=== PATIENT | female | born 1960 | race Caucasian/White ===

== ENCOUNTER 2021-10-31 13:04 | Emergency (ER) | payer OTHER, SELFPAY ==
[2021-10-31 13:08] VITALS: BP 170/67; PULSE 90; RESP 18; TEMP 36.6; O2SAT 99; BMI 26.6
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
--- NOTE | 2021-10-31 14:04 | PC.NURSE ---
report called to [facility] to ENMA Luna
== END 2021-10-31 13:53 | disposition short-term general hospital (02) ==
PROVIDERS: Emergency Provider Emergency Medicine Emergency Medical Services; PCP Internal Medicine
DX: S01.412A Laceration without foreign body of left cheek and temporomandibular area, initial encounter (principal); S01.511A Laceration without foreign body of lip, initial encounter; S01.81XA Laceration without foreign body of other part of head, initial encounter; V17.0XXA Pedal cycle driver injured in collision with fixed or stationary object in nontraffic accident, initial encounter; Y93.55 Activity, bike riding; Y92.414 Local residential or business street as the place of occurrence of the external cause; Y99.9 Unspecified external cause status
CPT/HCPCS: 99285

== ENCOUNTER 2023-04-12 08:58 | Day surgery (SDC) | payer BC, SELFPAY ==
[2023-04-08 15:07] VITALS: BMI 27.4
--- NOTE | 2023-04-11 09:19 | HO.ANESPROP2 ---
Documented by User: Dayanara Guerrier NP 04/11/23 09:20 HPI - Anesthesia Eval Consult details Narrative: 62yo F for Colonoscopy [facility] Past Medical History Medical History Osteoarthritis Elevated cholesterol Renal calculi Migraine Anxiety HTN (hypertension) Surgical History Surgical History History of endometrial ablation History of back surgery H/O colonoscopy Social History Social History Patient Tobacco Use Status: Former Tobacco user Quit Date: >10 years ago Tobacco use type: Cigarette Use of substances other than those prescribed or required for medical reasons: Yes Substance Use Type Other:: Edible with dinner Are you DNR?: No Advance Directives: No Advance Directives Information Provided: Yes Meds Allergies Allergy/AdvReac Type Severity Reaction Status Date / Time codeine [CODEINE] Allergy Unknown UNKNOWN Verified 04/12/23 09:09 Home Medications Medication Instructions Recorded Confirmed Last Taken Type [id number]-[id number]-[id number] 1 cap PO TID PRN Migraine Headache 04/08/23 04/08/23 Unknown History 50 mg-325 mg-40 mg capsule hydrochlorothiazide 12.5 mg capsule 12.5 mg PO DAILY 04/08/23 04/08/23 Unknown History lisinopril 20 mg tablet 20 mg PO DAILY 04/08/23 04/08/23 Unknown History lorazepam 0.5 mg tablet 0.5 mg PO DAILY PRN anxiety 04/08/23 04/08/23 Unknown History paroxetine HCl 10 mg tablet 10 mg PO QAM 04/08/23 04/12/23 04/12/23 History rosuvastatin 10 mg tablet 10 mg PO DAILY 04/08/23 04/08/23 Unknown History Exam Height,Weight and Vital Signs: Height 5 ft 6 in Weight 77.111 kg Assessment and Plan Assessment Anesthesia Assessment: Chart Reviewed Documented by User: Vicky Holly MD 04/12/23 09:33 [facility] Past Medical History Medical History Osteoarthritis Elevated cholesterol Renal calculi Migraine Anxiety HTN (hypertension) Family History Family history of problems with anesthesia: No Surgical History Surgical History History of endometrial ablation History of back surgery H/O colonoscopy History of Problems with Anesthesia: No Social History Social History Patient Tobacco Use Status: Former Tobacco user Quit Date: >10 years ago Tobacco use type: Cigarette Use of substances other than those prescribed or required for medical reasons: Yes Substance Use Type Other:: Edible with dinner Are you DNR?: No Advance Directives: No Advance Directives Information Provided: Yes Meds Allergies Allergy/AdvReac Type Severity Reaction Status Date / Time codeine [CODEINE] Allergy Unknown UNKNOWN Verified 04/12/23 09:09 Home Medications Medication Instructions Recorded Confirmed Last Taken Type zlgjedpwxg-dmzszcckkbgua-fugaiwku 1 cap PO TID PRN Migraine Headache 04/08/23 04/08/23 Unknown History 50 mg-325 mg-40 mg capsule hydrochlorothiazide 12.5 mg capsule 12.5 mg PO DAILY 04/08/23 04/08/23 Unknown History lisinopril 20 mg tablet 20 mg PO DAILY 04/08/23 04/08/23 Unknown History lorazepam 0.5 mg tablet 0.5 mg PO DAILY PRN anxiety 04/08/23 04/08/23 Unknown History paroxetine HCl 10 mg tablet 10 mg PO QAM 04/08/23 04/12/23 04/12/23 History rosuvastatin 10 mg tablet 10 mg PO DAILY 04/08/23 04/08/23 Unknown History Exam Airway Mallampati Class: II TM Dist: >3cm Neck ROM: Full Heart: rrr Lungs: cta Assessment and Plan Assessment Anesthesia Assessment: Anesthesia Plan Discussed Final Anesthetic Review Family History of Problems with Anesthesia: No History of Problems with Anesthesia: No NPO: Yes ASA Class: II Final Preanesthetic Review: No Changes in Pt Med Stat, Meds/Allgs Chart Reviewed, Consent Obtained/Reviewed and Anes Risks/Benef Reviewed Patient Risk: Low Procedure Risk: Low Anesthetic Plan Anesthetic Plan: MAC: Disposition: Standard PACU
[2023-04-12 09:03] VITALS: BMI 28.2
[2023-04-12 09:17] VITALS: BP 155/80; PULSE 61; RESP 16; TEMP 35.6; O2SAT 99
[2023-04-12] MEDS: Lactated Ringers 1,000 ML 100 ML IVCONT (09:27)
--- NOTE | 2023-04-12 09:57 | MHC.SHP ---
Pre-Procedural Eval Section A Date of Service: 04/12/23 Section B Chief Complaint: screening Details of Present Illness: see H*P no changes Relevant Family History (Specify if Yes): No Relevant Social History: None Present Medications: see Short Stay Collaborative assessment Medical History: No relevant PMH History of Previous Operations: No relevant previous surgery Allergies: Allergies Allergy/AdvReac Type Severity Reaction Status Date / Time codeine [CODEINE] Allergy Unknown UNKNOWN Verified 04/12/23 09:09 Review of Systems Sugical H&P ROS: Negative: Constitution, Cardiovascular, Respiratory, Neurological, Psychiatric, Hem-Onc, Allergic/Immunologic, Gastrointestinal, Genitourinary, Musculoskeletal, Integumentary, Endocrine and Eyes/Ears/Nose/Throat Exam Surgical H&P Exam: Normal: HEENT, Normal: Heart, Normal: Lungs, Normal: Extremities, Normal: Abdomen, Normal: Skin and Normal: Neurological Plan Diagnosis/Plan: Unchanged I have reviewed the history and physical and performed a pertinent physical examination on my patient. No changes have occurred unless specified. Time Spent With Patient Time: Total time managing care of this patient today ____ minutes.
[2023-04-12 10:37] VITALS: BP 106/51; PULSE 73; RESP 16; TEMP 36.9; O2SAT 97
[2023-04-12 10:52] VITALS: BP 109/60; PULSE 62; RESP 16; TEMP 36.3; O2SAT 100
--- NOTE | 2023-04-12 11:24 | OP_ITS ---
DATE OF SERVICE: 04/12/2023 SURGEON: Monty Shahid MD INDICATIONS: Colon cancer screening and prior history of adenomatous colon polyps. PREOPERATIVE DIAGNOSIS: POSTOPERATIVE DIAGNOSIS: PROCEDURE PERFORMED: Colonoscopy to the terminal ileum with biopsy. ESTIMATED BLOOD LOSS: COMPLICATIONS: ANESTHESIA: Monitored anesthesia care. ASSISTANTS: SPECIMENS: DESCRIPTION OF PROCEDURE: A history and physical was performed. The risks and benefits of the procedure were explained to the patient. Informed consent was obtained. The patient was placed in the left lateral decubitus position. A digital rectal exam was performed and was found to be normal. The Olympus pediatric video colonoscope was introduced into the rectum and advanced to the cecum without difficulty. The cecum was identified by transillumination, palpation, and identification of ileocecal valve. Examination was performed. The scope was removed. She tolerated the procedure well, and was returned to the recovery area in stable condition. FINDINGS: The terminal ileum was examined and appeared normal. The visualized colonic mucosa was within normal limits without evidence of masses or ulcers. There was a single polyp measuring less than 5 mm, which was identified at 70 cm. The polyp was removed with biopsy forceps. There was moderate sigmoid diverticulosis with scattered diverticula throughout the remainder of the colon. Retroflexed examination showed some internal hemorrhoids. The quality of the prep was good. IMPRESSION: Colon polyp. RECOMMENDATION: Follow up the biopsy results. MD YOBANI Landaverde/FEROZ / [id number]
== END 2023-04-12 11:08 | disposition home or self-care (01) ==
PROVIDERS: PCP Internal Medicine; Visit Provider Internal Medicine Gastroenterology
PROC: 0DJD8ZZ Inspection of Lower Intestinal Tract, Via Natural or Artificial Opening Endoscopic (ICD-10-PCS; CPT 45378; principal; 2023-04-12 10:30)
DX: Z12.11 Encounter for screening for malignant neoplasm of colon (principal); D12.4 Benign neoplasm of descending colon; K57.30 Diverticulosis of large intestine without perforation or abscess without bleeding; K64.8 Other hemorrhoids; Z86.010 Personal history of colon polyps; I10 Essential (primary) hypertension; E78.00 Pure hypercholesterolemia, unspecified; Z87.442 Personal history of urinary calculi; Z87.891 Personal history of nicotine dependence; Z79.02 Long term (current) use of antithrombotics/antiplatelets; Z79.899 Other long term (current) drug therapy
CPT/HCPCS: 45380; 88305; J2704

== ENCOUNTER 2025-01-11 08:58 | Emergency (ER) | payer BC, SELFPAY ==
--- NOTE | ~2025-01-11 | CT_ITS ---
EXAMINATION: CT ABDOMEN AND PELVIS WITH CONTRAST CLINICAL INFORMATION: Periumbilical pain COMPARISON: None available. TECHNIQUE: Multidetector volumetric images were obtained from the superior aspect of the liver through the pubic symphysis following administration 85 mL of Omnipaque 350 intravenous contrast. Sagittal and coronal reformatted images were obtained on the technologist's workstation. Oral contrast: No This CT examination was performed using dose optimization techniques as appropriate, variously including the following: *Automated exposure control *Adjustment of mA and/or kV according to patient size (this includes techniques or standardized protocols for targeted exams where dose is matched to indication/reason for exam; i.e. extremities or head) *Use of iterative reconstruction technique DLP: 722 mGy*cm FINDINGS: LUNG BASES: The visualized lung bases are unremarkable. LIVER, GALLBLADDER, AND BILIARY TREE: The liver is normal in size, shape, and attenuation. No focal hepatic lesion or biliary ductal dilatation is present. The gallbladder is unremarkable with no evidence of radiopaque gallstones, gallbladder wall thickening, or obvious pericholecystic inflammatory changes. PANCREAS: Unremarkable. SPLEEN: Unremarkable. ADRENAL GLANDS: Unremarkable. KIDNEYS AND URETERS: The kidneys are normal in size, shape, and attenuation. No hydronephrosis, hydroureter, or calculi seen. No perinephric stranding. BLADDER: Unremarkable. GASTROINTESTINAL TRACT: Diverticulosis present throughout the colon, and most pronounced in the descending and sigmoid colon. There is a mesenteric fat stranding in the sigmoid colon near junction with rectum. There is no loculated fluid collection or localized or generalized free air. ABDOMINAL WALL: No significant hernia is appreciated. LYMPH NODES: Normal. VASCULAR: Moderate vascular calcifications are present PELVIC VISCERA: Unremarkable. OSSEOUS STRUCTURES: Moderate multilevel degenerative disc disease is present in the lumbar spine. Mild degenerative changes are present in the hips. CT/CT abdomen pelvis w IV con IMPRESSION: Acute uncomplicated diverticulitis involving the sigmoid colon. Fleischner guidelines were followed. Electronically signed by: Dave Lopez MD 01/11/2025 12:53 PM EDT
[2025-01-11 09:25] VITALS: BP 109/62; PULSE 81; RESP 16; TEMP 36.8; O2SAT 96; BMI 27.5
[2025-01-11 09:45] LABS: MANUAL DIFF FLAG NO
[2025-01-11 09:47] LABS: Hematocrit 37.9 % (37.0-47.0); Hemoglobin 13.3 g/dl (12.0-16.0); Imm Gran Abs Auto 0.02 X10*3/uL (0.00-0.03); Imm Gran Pct Auto 0.2 % (0.0-0.4); Lymphocytes Absolute Auto 1.1 X10*3/uL (1.2-4.9); Mean Corpuscular HGB Conc 35.1 g/dl (31.0-35.0); Mean Corpuscular Hemoglobin 30.2 pg (27.0-33.0); Mean Corpuscular Volume 86.1 fL (80.0-98.0); NRBC Abs Auto 0.000 X10*3/uL (0.0-0.012); NRBC Pct Auto 0.0 /100WBC (0.0-0.2); Platelet Count 275 X10*3/uL (160-400); Red Blood Count 4.40 X10*6/uL (4.20-5.50); White Blood Count 9.9 X10*3/uL (4.8-10.8)
[2025-01-11 09:49] LABS: Appearance Urine Clear; Glucose Urine UA Negative (Negative); PH 7.5 (5.0-9.0); Specific Gravity - Urine 1.010 (1.005-1.025)
[2025-01-11 10:06] LABS: Alanine Aminotransferase 21 U/L (0-31); Albumin Level 4.6 g/dL (3.5-5.0); Alkaline Phosphatase 60 U/L (39-117); Anion Gap 13 (12-20); Aspartate Amino Transferase 19 U/L (5-31); Blood Urea Nitrogen 15 mg/dL (9-16); Calcium 9.2 mg/dL (8.4-10.2); Carbon Dioxide 25 mmol/L (22-29); Chloride 105 mmol/L (96-108); Creatinine Clr Calc Pharmacy 90.8; Estimated Glomerular Filt Rate > 60; Potassium 4.2 mmol/L (3.3-5.1); Sodium 139 mmol/L (135-145); Total Protein 7.1 g/dL (6.5-8.0)
[2025-01-11 11:01] VITALS: BP 128/68; PULSE 70; RESP 20; TEMP 36.7; O2SAT 99
--- NOTE | 2025-01-11 11:13 | ED_ITS ---
HPI - General Adult General Chief complaint: Abdominal Pain Stated complaint: pain in belly button, kidney stone? Time Seen by Provider: 01/11/25 10:18 Source: patient and family Mode of arrival: ambulatory Limitations: no limitations History of Present Illness ED Provider: THOMAS Walton HPI narrative: This is a 64-year-old female past medical history significant for hypertension, hyperlipidemia, hit kidney stones presenting to the emergency department with complaints of severe abdominal pain started around the umbilicus region and radiated down twoards the lower abdomen. She tells me this pain woke her in her sleep. Pain is still present and diffuse throughout her lower abdomen she tells me she is still quite uncomfortable. No associated nausea or vomiting. She still has her appendix, gallbladder. She tells me she has a history of diverticulitis however this seemed to feel slightly different. Related Data Home Medications ?Medication ?Instructions ?Recorded ?Confirmed zmpygdajwu-mqkpekymdvnmv-flhouxva 1 cap PO TID PRN Julio C aden Headache 04/08/23 04/08/23 50 mg-325 mg-40 mg capsule hydrochlorothiazide 12.5 mg capsule 12.5 mg PO DAILY 1 06/09/22 04/08/23 lisinopril 20 mg tablet 20 mg PO DAILY 04/08/2312/22 lorazepam 0.5 mg tablet 0.5 mg PO DAILY PRN anxiety 04/08/23 04/08/23 paroxetine HCl 10 mg tablet 10 mg PO QAM 04/08/2304/01 rosuvastatin 10 mg tablet 10 mg PO DAILY 04/08/2312/22 Previous Rx's ?Medication ?Instructions ?Recorded amoxicillin 875 mg-potassium 1 tab PO BID 10 days #20 tabs 01/11/25 clavulanate 125 mg tablet ketorolac 10 mg tablet 10 mg PO TID PRN pain 5 days #15 01/11/25 tabs Allergies Allergy/AdvReac Type Severity Reaction Status Date / Time codeine (CODEINE) Allergy Unknown UNKNOWN Verified 01/11/25 09:27 Review of Systems 2 Review of Systems: Yes all other systems are reviewed and are negative PMFSH Past Medical History Attestation statement: The following information was validated with the patient. Source: old records reviewed and nursing notes reviewed Medical History Osteoarthritis Elevated cholesterol Renal calculi Migraine Anxiety HTN (hypertension) Surgical History History of endometrial ablation History of back surgery H/O colonoscopy Social History Social History Patient Tobacco Use Status: Former Tobacco user Tobacco use type: Cigarette Physical Exam ED Exam Exam: Appearance: Alert.? Oriented X3.? No acute distress.? Head: Normocephalic, atraumatic, no step-offs or deformities Eyes: Pupils equal, round and reactive to light.? ENT: Pharynx normal.? Neck: Normal inspection.? Neck supple.? CVS: Normal heart rate and rhythm.? Pulses normal.? Respiratory: No respiratory distress.? Breath sounds normal.? Abdomen: Soft and nontender.? Skin: Skin warm and dry.? Normal skin color.? Normal skin turgor.? Extremities: No lower extremity edema.? No calf ttp. 5/5 strength to bilateral upper and lower extremities Neuro: Oriented X 3.? No motor deficit.? No sensory deficit. CN 2-12 intact Vital Signs: Vital Signs - 24 hr 01/11/25 09:25 01/11/25 11:01 01/11/25 11:32 Temperature 98.2 F 98.1 F 98.1 F Pulse Rate 81 70 67 Respiratory Rate 16 20 16 Blood Pressure 109/62 128/68 138/69 Pulse Oximetry 96 99 99 Oxygen Delivery Method Room Air Room Air Room Air 01/11/25 13:18 Temperature 98.1 F Pulse Rate 67 Respiratory Rate 16 Blood Pressure 138/69 Pulse Oximetry 99 Oxygen Delivery Method Room Air BMI result Body Mass Index 27.5 vss Course Reevaluation(s) Reevaluation #1: CBC with no acute findings needing intervention. Chemistry unremarkable. UA no infection. CT abdomen pelvis pending. Toradol will be given for pain. Time: 11:22 Reevaluation #2: Patient's CT of the abdomen showing acute uncomplicated diverticulitis involving the sigmoid colon. She is tolerating p.o. feeling well after Toradol. Will discharge her home with Toradol as well as Augmentin. Educated patient on diagnosis and treatment plan, answered all question, patient verbalizes understanding. At this time patient will be discharged home, advised to return with new or worsening symptoms. Educated on worrisome signs and symptoms and when to return. At this time I feel comfortable discharge home. Time: 13:41 Medications Administered Discontinued Medications Generic Name Dose Route Start Last Admin Trade Name Brigid PRN Reason Stop Dose Admin Iohexol 100 ml 01/11/25 12:38 01/11/25 12:39 Iohexol 350 Mg/Ml 100 Ml Infus..Btl IV 01/11/25 12:39 85 ml ONCE ONE Administration Ketorolac Tromethamine 30 mg 01/11/25 11:21 01/11/25 11:29 Ketorolac Tromethamine 15 Mg/Ml Vial IVPUSH 01/11/25 11:22 30 mg ONCE ONE Administration Medical Decision Making Medical Decision Making [facility] Narrative: 1120 64-year-old female presents with abdominal pain started in the umbilicus region and radiated to lower abdomen still present. Woke her from her sleep. History of kidney stones and diverticulitis. No associated nausea or vomiting. She does mention later she has some foul smelling urine. Physical exam significant for tenderness to palpation throughout entire abdomen worse to the lower quadrants there is tenderness to the right upper quadrant as well. History and physical exam concerning for diverticulitis versus kidney stones versus UTI. Low suspicion for pyelo. Will rule out appendicitis. No signs of acute abdomen. Will rule out metabolic derangements. Plan labs, urine, imaging Differential Diagnosis Differential Diagnoses: The differential diagnosis associated with the presentation includes (History and physical exam concerning for diverticulitis versus kidney stones versus UTI. Low suspicion for pyelo. Will rule out appendicitis. No signs of acute abdomen. Will rule out metabolic derangements.) Admission/Observation Consideration of admission/observation: Escalation of care including admission/observation considered Lab Data [facility] Lab Attestation statement: I reviewed the patient's lab results. 01/11/25 09:39 01/11/25 09:39 Labs: Lab Results 01/11/25 Range/Units 09:39 WBC 9.9 (4.8-10.8) X10*3/uL RBC 4.40 (4.20-5.50) X10*6/uL Hgb 13.3 (12.0-16.0) g/dl Hct 37.9 (37.0-47.0) % MCV 86.1 (80.0-98.0) fL MCH 30.2 (27.0-33.0) pg MCHC 35.1 H (31.0-35.0) g/dl RDW 12.7 (11.0-16.0) % Plt Count 275 (160-400) X10*3/uL MPV 10.0 (9.4-12.3) fL Immature Gran % (Auto) 0.2 (0.0-0.4) % Neut % (Auto) 80.3 H (45-73) % Lymph % (Auto) 10.8 L (20-40) % [place] % (Auto) 7.3 (2-11) % Eos % (Auto) 1.0 (0-4) % Baso % (Auto) 0.4 (0-2) % Lymph # (Auto) 1.1 L (1.2-4.9) X10*3/uL [place] # (Auto) 0.7 (0.1-1.2) X10*3/uL Eos # (Auto) 0.1 (0.0-0.4) X10*3/uL Baso # (Auto) 0.0 (0.0-0.2) X10*3/uL Abs Immat Gran (auto) 0.02 (0.00-0.03) X10*3/uL Absolute Neuts (auto) 8.0 (2.0-8.3) x10*3/uL Absolute Nucleated RBC 0.000 (0.0-0.012) X10*3/uL Nucleated RBC % (auto) 0.0 (0.0-0.2) /100WBC Sodium 139 (135-145) mmol/L Potassium 4.2 (3.3-5.1) mmol/L Chloride 105 (96-108) mmol/L Carbon Dioxide 25 (22-29) mmol/L Anion Gap 13 (12-20) BUN 15 (9-16) mg/dL Creatinine 0.65 (0.5-1.4) mg/dL Estim Creat Clear Calc 90.8 Estimated GFR > 60 Random Glucose 109 (60-115) mg/dL Calcium 9.2 (8.4-10.2) mg/dL Total Bilirubin 0.7 (0.0-1.0) mg/dL AST 19 (5-31) U/L ALT 21 (0-31) U/L Alkaline Phosphatase 60 (39-117) U/L Total Protein 7.1 (6.5-8.0) g/dL Albumin 4.6 (3.5-5.0) g/dL Urine Color Yellow Urine Appearance Clear Urine pH 7.5 (5.0-9.0) Ur Specific Krebs 1.010 (1.005-1.025) Urine Protein Negative (Neg-Trace) mg/dL Urine Glucose (UA) Negative (Negative) mg/dL Urine Ketones Negative (Negative) mg/dL Urine Blood Negative (Negative) Urine Nitrite Negative (Negative) Ur Leukocyte Esterase Negative (Negative) Independent Interpretation I performed an independent interpretation of an: CT Scan Radiology Impression Discussion of test interpretation with radiology: I have reviewed the radiologist's reading. Independent Historian Clinical information obtained from an independent historian. History obtained from or confirmed by: Spouse External Record Review External record reviewed: Inpatient record, Office record, Outpatient record, Prior outpatient labs, Prior outpatient radiology, Primary care record and Outside ED record Discharge Plan Discharge Clinical Impression: Diverticulitis, Abdominal pain Patient Disposition: Home, Self-Care Instructions: Diverticulitis (ED), Abdominal Pain (ED) Additional Instructions: Take your medications as prescribed. If you were prescribed antibiotics today, it is important that you take your medication to their entirety, do not skip any doses, do not finish them early. Follow-up with your primary care provider this week. Return to the emergency department with new or worsening symptoms. Such as fevers, chills, chest pain, shortness of breath, nausea, vomiting, dizziness, headache, vision changes, lethargy In case of emergency call 911 CT/CT abdomen pelvis w IV con IMPRESSION: Acute uncomplicated diverticulitis involving the sigmoid colon. Fleischner guidelines were followed. Prescriptions: New amoxicillin-pot clavulanate 875-125 mg tablet 1 tab PO BID 10 Days Qty: 20 0RF ketorolac 10 mg tablet 10 mg PO TID PRN (Reason: pain) 5 Days Qty: 15 0RF Rx Instructions: Tolerated IM or IV in department No Action ssidkpehri-clzxwwidqnhbg-ynzw 50-325-40 mg capsule 1 cap PO TID PRN (Reason: Migraine Headache) paroxetine HCl 10 mg tablet 10 mg PO QAM lisinopril 20 mg tablet 20 mg PO DAILY lorazepam 0.5 mg tablet 0.5 mg PO DAILY PRN (Reason: anxiety) hydrochlorothiazide 12.5 mg capsule 12.5 mg PO DAILY rosuvastatin 10 mg tablet 10 mg PO DAILY Referrals: Monty Shahid MD [Physician, Gastroenterology] Miguelito Lee MD [Primary Care Provider, Internal Medicine] Interventions: ED Discharge Assessment Last Done: 01/11/25 13:18 Discharge Date/Time: 01/11/25 13:19 Print Language: Wallisian
--- NOTE | 2025-01-11 11:29 | PC.NURSE ---
Pt Axo3, Pt states she's been having abdominal pain of 8 out of 10 that radiates to R flank. Pt has a hx of Kidney stones. PT lives at home and is independent per baseline, 20G IV in Right AC, PT medicated per JUN. VS updated call schmitz within reach, Pt awaiting CT scan.
[2025-01-11 11:32] VITALS: BP 138/69; PULSE 67; RESP 16; TEMP 36.7; O2SAT 99
--- OUTSIDE RECORDS SUMMARY | 2025-01-11 12:00 | XMS_ITS | Clinical Summary ---
Author Organization [facility] Address [address] [place] [address] Care Team Providers Care Organizational Research Consultant Name Role Phone Miguelito Lee MD Primary Care Provider [phone] Allergies Active Allergy Reactions Criticality Noted Date Comments Codeine 11/09/2021 Codeine-Guaifenesin Dizziness 05/31/2022 Medications PARoxetine (Paxil) 10 mg tablet Take 10 mg by mouth in the morning. 05/16/2022 Active LORazepam (Ativan) 0.5 mg tablet Take 0.5 mg by mouth in the morning. 05/05/2022 Active lisinopril 20 mg tablet Take 20 mg by mouth in the morning. 05/09/2022 Active hydroCHLOROthia zide (Microzide) 12.5 mg capsule Take 12.5 mg by mouth in the morning. 05/14/2022 Active butalbital-acet aminophen-caff (Esgic) 50-325-40 mg capsule Take 1 capsule by mouth if needed in the morning, at noon, and at bedtime. 05/18/2022 Active Active Problems No known active problems Family History Medical History Relation Name Comments Cancer Father ZACKARY SMALL Hypertension Sister ZAYNAB ROSAS ANA CRISTINA RSTUCKER Relation Name Status Comments Father ZACKARY SMALL Sister LUISITO OSBORNEZAYNAB Social History Tobacco Use Types Packs/Day Years Used Date Smoking Tobacco: Former Cigarettes 0.3 12 0 10/06/1982 - 10/06/1994 Smokeless Tobacco: Never Tobacco Cessation:Counseling Given: Not Answered Alcohol Use Standard Drinks/Week Comments Yes 4 (1 standard drink = 0.6 oz pur e alcohol) WITH DINNER Comments Unknown Sex and Gender Information Value Date Recorded Sex Assigned at Not on file Legal Sex Female 8:25 AM EDT Gender Identity Not on file Sexual Orientation Not on file Last Filed Vital Signs Vital Sign Reading Time Taken Comments Blood Pressure - - Pulse - - Temperature - - Respiratory Rate - - Oxygen Saturation - - Inhaled Oxygen Concentration - - Weight 78.6 kg (173 lb 3.2 oz) 11/09/2021 1:50 P M EDT Height 165.1 cm (5' 5 ) 11/09/2021 1:50 PM EDT Body Mass Index 28.82 11/09/2021 1:50 PM EDT Plan of Treatment Health Maintenance Due Date Last Done Comments CT Colonography 1962 Colonoscopy 1962 Colorectal Cancer Screening 1962 FIT-DNA 1962 FIT 1962 FOBT 1962 HIV Screening 1962 Lipid Panel 1962 Sigmoidoscopy 1962 MMR Vaccines (1 of 1 - Standard series) 08/06/1963 Hepatitis C Screening 1980 Pap Smear 08/06/1983 Cervical Cancer Screening 1992 HPV/Cotest 1992 Mammogram 2002 Pneumococcal Vaccine: 50+ Years (1 of 1 - PCV) 2012 Zoster Vaccines (2 of 2) 10/14/2020 08/19/2020 Depression Screening 05/02/2024 COVID-19 Vaccine ( season) 2024 01/22/2022, 03/02/2021, 01/07/2021, Additional history exists Influenza Vaccine (#1) 2024 3, 01/22/2022, 03/18/2021, Additional history exists DTaP/Tdap/Td Vaccines (3 - Td or Tdap) 11/01/2031 10/31/2021, 05/02/2009, 05/02/2005 Hepatitis A Vaccines Aged Out 01/07/2011 No long er eligible based on patient's age to complete this topic HIB Vaccines Aged Out No longer eligi ble based on patient's age to complete this topic HPV Vaccines Aged Out No longer eligi ble based on patient's age to complete this topic Hepatitis B Vaccines Aged Out No long er eligible based on patient's age to complete this topic IPV Vaccines Aged Out No longer eligi ble based on patient's age to complete this topic Meningococcal B Vaccine Aged Out No l onger eligible based on patient's age to complete this topic Meningococcal Vaccine Aged Out No antonio lonnie eligible based on patient's age to complete this topic Rotavirus Vaccines Aged Out No longer eligible based on patient's age to complete this topic [facility] Care Teams Organizational Research Consultant Relationship Specialty Start Date End Date Miguelito Lee MD [address] [place] [id number] PCP - General Stonework Supervisor 11/09/21
--- OUTSIDE RECORDS SUMMARY | 2025-01-11 12:00 | XMS_ITS | Clinical Summary ---
Author Organization [facility] Address [address] [place] [id number] Phone Care Team Providers Care Signal Engineer Name Role Phone Miguelito Lee MD Primary Care Provider + Medications diclofenac sodium (VOLTAREN) 75 MG EC tabletIndications:P rimary osteoarthritis of right knee,Pain and swelling of knee, right Take 1 tablet (75 mg total) by mouth 2 (two) times a day. 60 tablet Active Social History Tobacco Use Types Packs/Day Years Used Date Smoking Tobacco: Never Assessed Education Answer Date Recorded Are you interested in more education? Not on cara e 01/20/2024 Are you concerned about learning? Not on file 01/20/2024 No 01/20/2024 No 01/20/2024 Digital Access Answer Date Recorded No 01/20/2024 No 01/20/2024 Reliable internet access at home? Not on file 01/20/2024 Device with a working camera? Not on file Comments Unknown Sex and Gender Information Value Date Recorded Sex Assigned at Not on file Legal Sex Female 6:40 PM EST Gender Identity Not on file Sexual Orientation Not on file Plan of Treatment Health Maintenance Due Date Last Done Comments Adult Td,Tdap Booster 1962 LIPID PANEL 1962 DEPRESSION SCREENING 1974 SMOKING Hx and SMOKELESS TOB ACCO SCREENING 08/06/1975 HEPATITIS C SCREENING 1980 HIV ONE-TIME SCREENING (18-6 5 YEARS) 1980 PAP SMEAR 08/06/1983 MAMMOGRAM 2002 COLOGUARD 08/06/2007 COLONOSCOPY 08/06/2007 COLORECTAL CANCER SCREENING 08/06/2007 FIT TEST 08/06/2007 FOBT 08/06/2007 SIGMOIDOSCOPY 08/06/2007 VIRTUAL COLONOSCOPY 08/06/2007 PNEUMOCOCCAL VACCINES (50+ y ears) (1 of 1 - PCV) 2012 ZOSTER VACCINES (1 of 2) 2012 INFLUENZA VACCINE (#1) 2024 COVID-19 VACCINE (1 - 2023-2 5 season) 2024 RSV VACCINE (1 - 1-dose 75+ series) 2037 HEPATITIS A VACCINES Aged Out No long er eligible based on patient's age to complete this topic HIB VACCINES Aged Out No longer eligi ble based on patient's age to complete this topic MENINGOCOCCAL VACCINES (ACWY) Aged Out No longer eligible based on patient's age to complete this topic MENINGOCOCCAL VACCINES (B) Aged Out N o longer eligible based on patient's age to complete this topic Medical Devices Not on file [place] [address] [facility] [place] [address] [place] [address] Member Subscriber Plan / Payer (Ef fective 2022-Present) Name:Katharina Maldonado Relation to Subscriber:Self Name:Katharina Maldonado Payer ID:[id number] (NAIC) Type:HMO Address: [address] [place], [place] [address] [facility] Care Teams Signal Engineer Relationship Specialty Start Date End Date Miguelito Lee MD PCP - General 01/20/24 Additional Source Comments The information contained in this document represents components of the legal health record. It is not the complete legal health record.[facility]
--- OUTSIDE RECORDS SUMMARY | 2025-01-11 12:01 | XMS_ITS | Patient Health Record ---
Author Organization [facility] mart[facility] Address [address] [place] [address] Care Team Providers Care Software Developer Intern Name Role Phone Marcela Edwards Primary Care Provider Sascha Barrera Unavailable [phone] Allergies Allergen (clinical drug ingredient) Drug/Non Drug Allergy documented on EMR Reaction Allergy Type Onset Date Status Codeine Phosphate flu like reaction Drug Allergy Active Reason For Referral No Information Medications Medication SIG (Take, Route, Fr equency, Duration) Notes Start Date End Date Status LORazepam 1 MG 1 tablet at bedtime as needed Orally Once a day Active Physical Therapy . . . 2-3x/week; Durat ion: 3-4 weeks 05/29/2018 Active Social History Tobacco Use: Social History Observation Description Date Details (start date - stop date) Former Smoker NA - NA Tobacco Use/Smoking Question Answer Notes Are you a: former smoker Additional Findings: Tobacco User Modera te cigarette smoker (10-19 cigs/day) Additional Findings: Tobacco Non-User Current no n-smoker Alcohol Screen Question Answer Notes Did you have a drink containing alcohol in the p ast year? Yes Points 0 Interpretation Negative Tobacco use other than smoking: Question Answer Notes Are you an other tobacco user? No Plan Of Treatment Pending Test Test Name Order Date X ray : Foot, right 3V 05/29/2018 Insurance Providers Payer Name Payer Address Payer Phone Subscriber Number Group Number Insured Name Patient Relationship to Insured Coverage Start Date Coverage End Date [place] [address] KRANTHI Gomez [phone] [id number] WaldoKatean Self - patient is the insured Medical (General) History Medical History History ICD Code Arthritis Back,Hip,and Knee pain Headaches/Migraines Surgical History Surgery Date(Month/Year) back surgery 1988
--- OUTSIDE RECORDS SUMMARY | 2025-01-11 12:01 | XMS_ITS | Patient Health Record ---
Author Organization [facility] Address [address] [place] [address] Care Team Providers Care Insurance Claims Specialist Name Role Phone Miguelito Lee MD Primary Care Provider Unavailab Monty Cox Jr Unavailable Allergies Allergen (clinical drug ingredient) Drug/Non Drug Allergy documented on EMR Reaction Allergy Type Onset Date Status codeine Codeine Sulfate Unknown Drug Allergy A ctive Reason For Referral No Information Medications Medication SIG (Take, Route, Frequency, Duration) Notes Start Date End Date Status LORazepam prn Active Rosuvastatin Calcium 10 MG Oral for 90 Active PARoxetine HCl 10 MG Oral for 90 Active Lisinopril 20 MG TAKE 1 TABLET BY MOUTH EVERY DAY Oral for 90 Active hydroCHLOROthiazide 12.5 MG Oral for 90 Active MiraLax (colon prep) 17 GM/SCOOP mixed with Gatorade or Crystal Light Orally begin at 5:00 p.m. the day before the procedure for 1 day 03/03/2023 Active Vfsevgogil-QSVH-Dfclawnl 50-325-40 MG TAKE 1 CAPSULE BY MOUTH 3 TIMES A DAY WHEN NEEDED Oral for 23 Active Problems Problem Type SNOMED Code ICD Code Onset Dates Problem Status W/U Status Risk Notes Problem 668680314 Colon cancer screening (Z12.11) Active confirmed Problem 179417481 Personal history of colonic polyps (Z86.010) Active confirmed Problem 02270474 Encounter for other preprocedural examination (Z01.818) Active confirmed Problem [id number] [facility] current use of diuretic (Z79.899) Active confirmed Plan Of Treatment Future Test Test Name Order Date COLONOSCOPY 05/27/2011 COLONOSCOPY 09/21/2017 COLONOSCOPY 03/03/2023 Insurance Providers Payer Name Payer Address Payer Phone Subscriber Number Group Number Insured Name Patient Relationship to Insured Coverage Start Date Coverage End Date [facility] [employer] [address] [place] [address] [id number] CARINA ZUNIGA Self - patient is the insured Medical (General) History Medical History History ICD Code anxiety migraine headaches, hormonally related Nephrolithiasis hypertension Hyperlipidemia Osteoarthritis Elevated BMI Colon polyps, colonoscopy 01/17, five-yea r followup Surgical History Surgery Date(Month/Year) back surgery uterine ablation
[2025-01-11] MEDS: iohexoL 350 MG/ML 100 ML INFUS..BTL IV (12:39)
[2025-01-11 13:18] VITALS: BP 138/69; PULSE 67; RESP 16; TEMP 36.7; O2SAT 99
== END 2025-01-11 13:19 | disposition home or self-care (01) ==
PROVIDERS: Emergency Provider Emergency Medicine; PCP Internal Medicine
DX: K57.32 Diverticulitis of large intestine without perforation or abscess without bleeding (principal); R10.2 Pelvic and perineal pain; Z79.899 Other long term (current) drug therapy
CPT/HCPCS: 36415; 74177; 80053; 81003; 85025; 96374; 99284; 99285; J1885; Q9967

== ENCOUNTER → 2025-01-11 10:55 | Outpatient (BNV) | payer BC, SELFPAY | PROVIDERS: Emergency Provider Emergency Medicine; PCP Internal Medicine; Visit Provider Radiology Diagnostic Radiology | DX: K57.32 Diverticulitis of large intestine without perforation or abscess without bleeding (principal) | CPT/HCPCS: 74177 ==